=== PATIENT | female | born 1975 | race Caucasian/White ===

== ENCOUNTER 2017-07-07 22:27 | Emergency (ER) | payer MEDICAID, OTHER ==
[2017-07-08 00:55] LABS: Hematocrit 35 % (35-47); Hemoglobin 11.5 g/dl (12.0-16.0); Mean Corpuscular HGB Conc 33 g/dl (31-36); Mean Corpuscular Hemoglobin 26 pg (27-31); Mean Corpuscular Volume 78 fL (80-97); Mean Platelet Volume 8 um3 (7.4-10.4); Red Blood Count 4.51 10^6/ul (4.0-5.4); Red Cell Distribution Width 16 % (10.5-15); White Blood Count 8.3 10^3/ul (3.5-10.8)
[2017-07-08 02:12] LABS: Urine Bilirubin Negative (Negative); Urine Glucose Negative (Negative); Urine Nitrite Negative (Negative)
[2017-07-08 02:27] LABS: ALT 29 U/L (7-52); AST 61 U/L (13-39); Albumin 4.4 g/dL (3.2-5.2); Alkaline Phosphatase 218 U/L (34-104); Anion Gap 8 mmol/L (2-11); BUN/Creatinine Ratio 27.3 (8-20); Blood Urea Nitrogen 24 mg/dL (6-24); CO2 Carbon Dioxide 39 mmol/L (22-32); Calcium 9.7 mg/dL (8.6-10.3); Chloride 86 mmol/L (101-111); EGFR African American 91.5 (>60); EGFR Non-African American 71.2 (>60); Globulin 3.9 g/dL (2-4); Glucose 118 mg/dL (70-100); Sodium 133 mmol/L (133-145); Total Protein 8.3 g/dL (6.4-8.9)
[2017-07-08 02:31] LABS: Alcohol < 10 mg/dL (<10); Phenytoin 4.8 mcg/mL (10-20)
[2017-07-08] MEDS ORDERED: Ondansetron ODT TAB* 4 MG PO ONE (02:34)
[2017-07-08 02:38] LABS: Benzodiazepine Urine Screen None Detected (None Detect)
[2017-07-08] MEDS ORDERED: Potassium Chlor TAB* 20 MEQ TAB.ER PO ONE (02:43)
[2017-07-08] MEDS ORDERED: NS 0.9% 1000 ML* 1,000 ML IV ONE (02:45)
[2017-07-08] MEDS ORDERED: Gabapentin CAP(*) 400 MG PO ONE (02:47)
[2017-07-08] MEDS ORDERED: Furosemide IV* 10 MG/ML 2 ML VIAL (20 MG) IV ONE (02:47)
[2017-07-08] MEDS ORDERED: Phenytoin CAP(*) 100 MG CAP.ER PO ONE (02:48)
[2017-07-08] MEDS ORDERED: Ketorolac INJ* 30 MG/ML 1 ML VIAL IV PUSH ONE (02:56)
[2017-07-08 04:51] VITALS: BP 109/84
--- NOTE | 2017-07-11 14:15 | ED ---
Jose De Jesus Castillo Alfonso, scribed for Joyce Julian MD on 07/08/17 at 0241 . Complex/Multi-Sys Presentation - HPI Summary HPI Summary: This patient is a 42 year old F BIBA to [facility] with a chief complaint of all of my joints hurt and are so sore since two days ago. The patient rates the pain 7/10 in severity. Symptoms alleviated by nothing. Patient reports twitching , blurred vision, and nausea. Patient denies CP, SOB, and abdominal pain. She is in [facility] for [facility], crack cocaine, and ETOH abuse for which she has been abstinent for over 100 days. She reports not having her Phenytoin medication in 2 days although the medication administration record from [facility] shows that she has had phenytoin 300mg twice a day prescribed and it has been administered. Pt states she can take ketorolac, despite allergy listed as itching, and she agrees to try it for her pain tonight. Tobacco abuse disorder. PMHx includes NE. - History Of Current Complaint Chief Complaint: EDGeneral Time Seen by Provider: 07/08/17 01:04 Hx Obtained From: Patient Onset/Duration: Sudden Onset, Lasting Days - 2, Still Present Timing: Constant Severity Currently: Moderate Severity Initially: Moderate Location: Pain At: - "all my joints" Character: Dull Aggravating Factor(s): nothing Alleviating Factor(s): nothing Associated Signs And Symptoms: Positive: Other - twitching, blurred vision, and nausea. Patient denies CP, SOB, and abdominal pain. Related History: Other - inpatient at [facility] - Allergies/Home Medications Allergies/Adverse Reactions: Allergies Allergy/AdvReac Type Severity Reaction Status Date / Time Ketorolac Tromethamine Allergy Itching Verified 07/07/17 22:32 [From Toradol] Tramadol Allergy Itching Verified 07/07/17 22:32 PMH/Surg Hx/FS Hx/Imm Hx Previously Healthy: No Cardiovascular History: Reports: Hx Coronary Artery Disease, Hx Myocardial Infarction GI History: Reports: Other GI Disorders - pancreatitis Opthamlomology History: Denies: Hx Legally Blind EENT History: Denies: Hx Deafness Neurological History: Reports: Hx Peripheral Neuropathy, Hx Seizures - Surgical History Surgery Procedure, Year, and Place: no surgical hx Infectious Disease History: Yes Infectious Disease History: Denies: Traveled Outside the [place] in Last 30 Days - Family History Known Family History: Positive: Cardiac Disease - Social History Occupation: Disabled Lives: Shelter - [facility] Alcohol Use: Occasionally Hx Substance Use: Yes Substance Use Type: Reports: Cocaine - Crack, former, at [facility] 07/2017, Heroin - former, at [facility] 07/2017 Smoking Status (MU): Light Every Day Tobacco Smoker Review of Systems Positive: Other - "twitching" Positive: Blurred Vision Negative: Chest Pain Negative: Shortness Of Breath Positive: Nausea. Negative: Abdominal Pain Positive: Arthralgia Skin: Negative Neurological: Other - twitching Psychological: Normal All Other Systems Reviewed And Are Negative: Yes Physical Exam Triage Information Reviewed: Yes Vital Signs On Initial Exam: Initial Vitals Temp Pulse Resp BP Pulse Ox 98.8 F 102 20 105/81 95 07/07/17 22:31 07/07/17 22:31 07/07/17 22:31 07/07/17 22:31 07/07/17 22:31 Vital Signs Reviewed: Yes Appearance: Positive: Well-Appearing, Well-Nourished, Pain Distress Skin: Positive: Warm, Skin Color Reflects Adequate Perfusion, Erythema @ - bilat ant tibia, chronic, Other - At bilateral tibias are old anterior scars, erythema, and edema. Head/Face: Positive: Normal Head/Face Inspection Eyes: Positive: Conjunctiva Clear ENT: Positive: Normal ENT inspection Neck: Positive: Supple, Nontender, No Lymphadenopathy Respiratory/Lung Sounds: Positive: Clear to Auscultation, Breath Sounds Present , Other - No respiratory distress Cardiovascular: Positive: RRR, Pulses are Symmetrical in both Upper and Lower Extremities, Other - Good capillary refill. Negative: Murmur Abdomen Description: Positive: Nontender, Soft Bowel Sounds: Positive: Present Musculoskeletal: Positive: Strength/ROM Intact Neurological: Positive: Sensory/Motor Intact, Alert, Oriented to Person Place, Time, CN Intact II-III, Normal Gait, Facial Symmetry, Speech Normal, Other - occasional myoclonic jerk, no tremor or seizure Psychiatric: Positive: Normal - Cody Coma Scale Coma Scale Total: 15 Diagnostics - Vital Signs Vital Signs Temp Pulse Resp BP Pulse Ox 07/07/17 22:31 98.8 F 102 20 105/81 95 - Laboratory Lab Results: Lab Results 07/08/17 07/08/17 07/08/17 Range/Units 00:20 00:20 00:20 WBC 8.3 (3.5-10.8) 10^3/ul RBC 4.51 (4.0-5.4) 10^6/ul Hgb 11.5 L (12.0-16.0) g/dl Hct 35 (35-47) % MCV 78 L (80-97) fL MCH 26 L (27-31) pg MCHC 33 (31-36) g/dl RDW 16 H (10.5-15) % Plt Count 307 (150-450) 10^3/ul MPV 8 (7.4-10.4) um3 Neut % (Auto) 37.7 L (38-83) % Lymph % (Auto) 49.4 H (25-47) % [place] % (Auto) 10.8 H (1-9) % Eos % (Auto) 1.4 (0-6) % Baso % (Auto) 0.7 (0-2) % Absolute Neuts (auto) 3.1 (1.5-7.7) 10^3/ul Absolute Lymphs (auto) 4.1 (1.0-4.8) 10^3/ul Absolute Monos (auto) 0.9 H (0-0.8) 10^3/ul Absolute Eos (auto) 0.1 (0-0.6) 10^3/ul Absolute Basos (auto) 0.1 (0-0.2) 10^3/ul Absolute Nucleated RBC 0.01 10^3/ul Nucleated RBC % 0.1 INR (Anticoag Therapy) 1.00 (0.89-1.11) APTT 29.5 (26.0-36.3) seconds Sodium (133-145) mmol/L Potassium (3.5-5.0) mmol/L Chloride (101-111) mmol/L Carbon Dioxide (22-32) mmol/L Anion Gap (2-11) mmol/L BUN (6-24) mg/dL Creatinine (0.51-0.95) mg/dL Est GFR ( Amer) (>60) Est GFR (Non-Af Amer) (>60) BUN/Creatinine Ratio (8-20) Glucose (70-100) mg/dL Lactic Acid 1.9 (0.5-2.0) mmol/L Calcium (8.6-10.3) mg/dL Magnesium (1.9-2.7) mg/dL Total Bilirubin (0.2-1.0) mg/dL AST (13-39) U/L ALT (7-52) U/L Alkaline Phosphatase (34-104) U/L Total Protein (6.4-8.9) g/dL Albumin (3.2-5.2) g/dL Globulin (2-4) g/dL Albumin/Globulin Ratio (1-3) Urine Color Urine Appearance Urine pH (5-9) Ur Specific [place] (1.010-1.030) Urine Protein (Negative) Urine Ketones (Negative) Urine Blood (Negative) Urine Nitrate (Negative) Urine Bilirubin (Negative) Urine Urobilinogen (Negative) Ur Leukocyte Esterase (Negative) Urine Glucose (Negative) Urine Opiates Screen (None Detect) Ur Barbiturates Screen (None Detect) Phenytoin (10-20) mcg/mL Ur Phencyclidine Scrn (None Detect) Ur Amphetamines Screen (None Detect) U Benzodiazepines Scrn (None Detect) Urine Cocaine Screen (None Detect) U Cannabinoids Screen (None Detect) Serum Alcohol (<10) mg/dL 07/08/17 07/08/17 07/08/17 Range/Units 02:00 02:00 02:00 WBC (3.5-10.8) 10^3/ul RBC (4.0-5.4) 10^6/ul Hgb (12.0-16.0) g/dl Hct (35-47) % MCV (80-97) fL MCH (27-31) pg MCHC (31-36) g/dl RDW (10.5-15) % Plt Count (150-450) 10^3/ul MPV (7.4-10.4) um3 Neut % (Auto) (38-83) % Lymph % (Auto) (25-47) % [place] % (Auto) (1-9) % Eos % (Auto) (0-6) % Baso % (Auto) (0-2) % Absolute Neuts (auto) (1.5-7.7) 10^3/ul Absolute Lymphs (auto) (1.0-4.8) 10^3/ul Absolute Monos (auto) (0-0.8) 10^3/ul Absolute Eos (auto) (0-0.6) 10^3/ul Absolute Basos (auto) (0-0.2) 10^3/ul Absolute Nucleated RBC 10^3/ul Nucleated RBC % INR (Anticoag Therapy) (0.89-1.11) APTT (26.0-36.3) seconds Sodium 133 (133-145) mmol/L Potassium 3.0 L (3.5-5.0) mmol/L Chloride 86 L (101-111) mmol/L Carbon Dioxide 39 H (22-32) mmol/L Anion Gap 8 (2-11) mmol/L BUN 24 (6-24) mg/dL Creatinine 0.88 (0.51-0.95) mg/dL Est GFR ( Amer) 91.5 (>60) Est GFR (Non-Af Amer) 71.2 (>60) BUN/Creatinine Ratio 27.3 H (8-20) Glucose 118 H (70-100) mg/dL Lactic Acid (0.5-2.0) mmol/L Calcium 9.7 (8.6-10.3) mg/dL Magnesium 3.0 H (1.9-2.7) mg/dL Total Bilirubin 0.30 (0.2-1.0) mg/dL AST 61 H (13-39) U/L ALT 29 (7-52) U/L Alkaline Phosphatase 218 H (34-104) U/L Total Protein 8.3 (6.4-8.9) g/dL Albumin 4.4 (3.2-5.2) g/dL Globulin 3.9 (2-4) g/dL Albumin/Globulin Ratio 1.1 (1-3) Urine Color Yellow Urine Appearance Clear Urine pH 8.0 (5-9) Ur Specific [place] 1.010 (1.010-1.030) Urine Protein Negative (Negative) Urine Ketones Negative (Negative) Urine Blood Negative (Negative) Urine Nitrate Negative (Negative) Urine Bilirubin Negative (Negative) Urine Urobilinogen Negative (Negative) Ur Leukocyte Esterase Negative (Negative) Urine Glucose Negative (Negative) Urine Opiates Screen None detected (None Detect) Ur Barbiturates Screen None detected (None Detect) Phenytoin 4.8 L (10-20) mcg/mL Ur Phencyclidine Scrn None detected (None Detect) Ur Amphetamines Screen None detected (None Detect) U Benzodiazepines Scrn None detected (None Detect) Urine Cocaine Screen None detected (None Detect) U Cannabinoids Screen None detected (None Detect) Serum Alcohol < 10 (<10) mg/dL Result Diagrams: 07/08/17 00:20 07/08/17 02:00 Lab Statement: Any lab studies that have been ordered have been reviewed, and results considered in the medical decision making process. Re-Evaluation - Re-Evaluation First Eval Re-Evaluation Time: 04:10 - reports pain relief and no twitching. Is ready to return to [facility]. Change: Improved Complex Multi-Symp Course/Dx Course Of Treatment: Pt received Phenytoin 300mg po x 1, KCl 40 mEq po x1, Furosemide 20mg IV x 1, NS IV x 1 liter, Gabapentin 800mg po x 1, Ketorolac 30mg IV x 1 (despite allergy of "itching" listed for toradol, pt states she can take toradol, and she did take toradol today without a problem, and it provided relief) and zofran 8mg ODT. K+ 3.0, Phenytoin 4.8 (low) Mag 3 (elevated), AST and alk phos elevated. She felt better after these meds and was agreeable to discharge back to [facility]. Assessment/Plan: This patient is a 42 year old F BIBA to [facility] with a chief complaint of all of my joint hurt and are so sore since two days ago. The patient rates the pain 7/10 in severity. Symptoms alleviated by nothing. Patient reports twitching, blurred vision, and nausea. Patient denies CP, SOB, and abdominal pain. She is in [facility] for [facility], crack cocaine, and ETOH abuse for which she has been abstinent for over 100 days. She reports not having her Phenytoin medication in 2 days. Tobacco abuse disorder. PMHx includes NE. Reviewed MAR from [facility] shows that patient has received phenytoin at 0800 and 2000 yesterday. However, because Phenytoin is low, she was administered another dose in the ED. Patient will be discharged to [facility] with prescription for Potassium Chloride and follow up from PCP. The patient is agreeable with this plan. - Diagnoses Differential Diagnoses/HQI/PQRI: Metabolic Abnormality, Other - seizure, chronic pain Provider Diagnoses: Arthralgia, Chronic pain disorder, Hypokalemia, Subtherapeutic phenytoin level , Elevated AST (SGOT), Elevated alkaline phosphatase level Discharge - Discharge Plan Condition: Stable Disposition: HOME Prescriptions: Potassium Chlor TAB* [Potassium Chlor TAB 20 MEQ*] 40 meq PO DAILY #10 tab.er Patient Education Materials: Hypokalemia (ED), Chronic Pain (ED) Referrals: No Primary Care Phys,NOPCP [Primary Care Provider] - Additional Instructions: YOUR POTASSIUM LEVEL WAS LOW. WE GAVE YOU A DOSE IN THE ER AND YOU WILL NEED TO TAKE IT ORALLY FOR THE NEXT 10 DAYS. WE MEDICATED YOU FOR PAIN WITH TORADOL AND GABAPENTIN. WE GAVE A DOSE OF LASIX FOR YOUR EDEMA. WE GAVE A DOSE OF YOUR PHENYTOIN. WE GAVE ZOFRAN FOR NAUSEA. FOLLOW UP WITH YOUR PCP. RETURN TO THE ER IF YOU HAVE ANY NEW OR WORSENING SYMPTOMS. The documentation as recorded by the Jose De Jesus sanofrd Alfonso accurately reflects the service I personally performed and the decisions made by me, Joyce Julian MD.
== END 2017-07-08 04:55 | disposition home or self-care (01) ==
LOC: ED 22:27
DX: G89.29 Other chronic pain (principal); M25.50 Pain in unspecified joint; E87.6 Hypokalemia; R74.0 Nonspecific elevation of levels of transaminase and lactic acid dehydrogenase [LDH]; R74.8 Abnormal levels of other serum enzymes; H53.8 Other visual disturbances; R11.0 Nausea
CPT/HCPCS: 36415; 80053; 80185; 80307; 80320; 81003; 83605; 83735; 85025; 85610; 85730; 96374; 99285; A9270-GY; G0480; J1885; J1940